=== PATIENT | male | born 1950 | race Hispanic/Latino ===

== ENCOUNTER → 2019-05-21 | Day surgery (SDC) | payer BC ==
[2019-05-16 14:18] LABS: BASOPHILS # (AUTO) 0.1 (0.0-0.1); BASOPHILS % 0.8 % (0.0-1.0); EOSINOPHILS # (AUTO) 0.1 (0.0-0.4); EOSINOPHILS % 1.3 % (0.0-6.0); HEMATOCRIT 43.7 % (38.2-49.6); HEMOGLOBIN 15.2 g/dL (14.0-18.0); LYMPHOCYTES # (AUTO) 2.5 (1.0-3.2); LYMPHOCYTES % 29.5 % (18.0-39.1); MEAN CORPUSCULAR HEMOGLOBIN 31.8 pg (28-32); MEAN CORPUSCULAR HGB CONC 34.8 g/dL (31-35); MEAN CORPUSCULAR VOLUME 91.4 fL (81-99); MONOCYTES # (AUTO) 0.8 (0.2-0.8); MONOCYTES % 9.5 % (4.4-11.3); NEUTROPHILS # (AUTO) 4.9 (2.1-6.9); NEUTROPHILS % 58.7 % (38.7-80.0); PLATELET COUNT 248 x10e3/uL (140-360); RED BLOOD COUNT 4.78 x10e6/uL (4.3-5.7); RED CELL DISTRIBUTION WIDTH 12.1 % (11.7-14.4)
[~2019-05-21] MED LIST: ASPIRIN81 MG PO; HYOSCYAMINE 0.125 MG TAB ONE; PROPOFOL IV EMULSION 10 MG/ML 20 ML VIAL ONE
--- OUTSIDE RECORDS SUMMARY | 2019-05-21 09:58 | XMS REPORT ---
[facility] Address Unknown Phone Unavailable Care Team Providers Care [employer] Administrator Name Role Phone Unavailable Unavailable Problems This patient has no known problems. Allergies, Adverse Reactions, Alerts This patient has no known allergies or adverse reactions. Medications This patient has no known medications. Encounters Start Date/Time End Date/Time Encounter Type Admission Type Attending [facility] Care Facility Care Department Encounter ID 2019-02-09 07:29:04 2019-02-09 07:29:04 Emergency [facility] [id number] 2017-03-23 10:25:06 2017-03-23 10:25:06 Emergency [facility] [id number] 2017-03-23 09:22:41 2017-03-23 09:22:41 Emergency [facility] [id number]
--- OUTSIDE RECORDS SUMMARY | 2019-05-21 09:58 | XMS REPORT ---
Author Author Admin, [place] Organization [facility] Address Unknown Phone Unavailable Allergies, Adverse Reactions, Alerts Allergy Name Reaction Description Start Date Severity Status Provider No Known Allergies Virgen Olivo MA Conditions or Problems Problem Name Problem Code Onset Date Status Entry Date Provider Comment Standard Description Annotate BMI 31.0-31.9 Active Wojciech Nicholas MD Body Mass Index 31.0-31.9, adult Allergic conjunctivitis 372.14 Active Wojciech Nicholas MD Other chronic allergic conjunctivitis Occipital pain 784.0 Active Wojciech Nicholas MD Headache Red eye, right 379.93 Active Wojciech Nicholas MD Redness or discharge of eye Back pain, left 724.5 Active David Vasquez MD Backache, unspecified Annual exam V72.31 Active Suasnna Meza MD Routine gynecological examination Colon cancer screening V76.51 Active Susanna Meza MD Screening for malignant neoplasms of colon Hx of neck pain 723.1 Active Susanna Meza MD Cervicalgia Lipid disorder screening V77.91 Active Susanna Meza MD Screening for lipoid disorders Obesity Active Susanna Meza MD Obesity, unspecified Screening for diabetes mellitus V77.1 Active Susanna Meza MD Screening for diabetes mellitus Std screening V74.5 Active Susanna Meza MD Screening examination for venereal disease Urinary hesitancy 788.64 Active Susanna Meza MD Urinary hesitancy Medication List Medication Instructions Start Date Stop Date Generic Name NDC Status Provider Patient Instruction NAPHCON-A 0.025-0.3 % OPHTHALMIC SOLUTION Apply 2 drops in the right eye twice a day NAPHAZOLINE-PHENIRAMINE 07486891052 Active Beatrice Hernandez MD Active TYLENOL 325 MG ORAL TABLET 1 tablet by mouth every 6 hours as needed ACETAMINOPHEN 18439459243 Active Beatrice Hernandez MD Active TYLENOL 8 HOUR ARTHRITIS PAIN 650 MG ORAL TABLET EXTENDED RELEASE ACETAMINOPHEN 11947263584 Active David Vasquez MD Active Vital Signs Date Name Value Unit Range Description blood pressure, diastolic 67 mm[Hg] BP montesinos blood pressure, systolic 125 mm[Hg] BP sys height E&M 66.50 [in_us] Bdy height pulse rate E&M 56 /min Heart rate respiratory rate E&M 20 /min Resp rate temperature E&M 98.0 [degF] Body temperature weight E&M 196.60 [lb_av] Weight Measured blood pressure, diastolic 85 mm[Hg] BP montesinos blood pressure, systolic 127 mm[Hg] BP sys height E&M 66.50 [in_us] Bdy height pulse rate E&M 60 /min Heart rate respiratory rate E&M 20 /min Resp rate temperature E&M 98.0 [degF] Body temperature weight E&M 202.20 [lb_av] Weight Measured blood pressure, diastolic 82 mm[Hg] BP montesinos blood pressure, systolic 128 mm[Hg] BP sys height E&M 66.5 [in_us] Bdy height pulse rate E&M 63 /min Heart rate respiratory rate E&M 18 /min Resp rate temperature E&M 98.1 [degF] Body temperature weight E&M 197 [lb_av] Weight Measured Diagnostic Results Date Name Value Unit Range Description Lab Report: CBC With Differential/Platelet, Comp. Metabolic Panel (14), ... - Urinalysis pH, urine, semiquantitative 7.5 5.0-7.5 epithelial cells, urine None seen /[LPF] 0 - 10 Lab Report: CBC With Differential/Platelet, Comp. Metabolic Panel (14), ... - Hematology lymphocyte count, blood, automated 2.3 X10E3/UL 10*3/mm3 0.7-3.1 Lab Report: CBC With Differential/Platelet, Comp. Metabolic Panel (14), ... - Urinalysis bilirubin, urine Negative Negative Lab Report: CBC With Differential/Platelet, Comp. Metabolic Panel (14), ... - Chemistry urea nitrogen, blood 21 mg/dL 8-27 creatinine, serum 1.09 mg/dL 0.76-1.27 chloride, serum 103 mmol/L 96-106 Lab Report: CBC With Differential/Platelet, Comp. Metabolic Panel (14), ... - Hematology mean corpuscular volume, RBC 91 fL 79-97 Lab Report: CBC With Differential/Platelet, Comp. Metabolic Panel (14), ... - Chemistry triglyceride, serum, fasting 315 mg/dL 0-149 Lab Report: CBC With Differential/Platelet, Comp. Metabolic Panel (14), ... - Hematology erythrocyte (RBC) count 4.44 X10E6/UL 10*6/mm3 4.14-5.80 Lab Report: CBC With Differential/Platelet, Comp. Metabolic Panel (14), ... - Chemistry Estimated Glomerular Filtration Rate (calc) 70 mL/min/1.73m2 >59 Lab Report: CBC With Differential/Platelet, Comp. Metabolic Panel (14), ... - Urinalysis appearance, urine Clear Clear Lab Report: CBC With Differential/Platelet, Comp. Metabolic Panel (14), ... - Hematology platelet count 222 X10E3/UL 10*3/mm3 143-099 7191/08/15 red blood cell distribution width 14.3 % 12.3-15.4 Lab Report: CBC With Differential/Platelet, Comp. Metabolic Panel (14), ... - Chemistry protein, total, serum 6.8 g/dL 6.0-8.5 HDL cholesterol, serum 31 mg/dL >39 Lab Report: CBC With Differential/Platelet, Comp. Metabolic Panel (14), ... - Urinalysis mucus on urinalysis Present Not Estab. Lab Report: CBC With Differential/Platelet, Comp. Metabolic Panel (14), ... - Chemistry specific gravity, body fluid 1.026 1.005-1.030 Lab Report: CBC With Differential/Platelet, Comp. Metabolic Panel (14), ... - Urinalysis glucose, urine, semiquantitative Negative Negative Lab Report: CBC With Differential/Platelet, Comp. Metabolic Panel (14), ... - Chemistry albumin/globulin ratio, serum 1.5 1.2-2.2 Lab Report: CBC With Differential/Platelet, Comp. Metabolic Panel (14), ... - Hematology eosinophils as percent of blood leukocytes 2 % Lab Report: CBC With Differential/Platelet, Comp. Metabolic Panel (14), ... - Chemistry Absolute Neutrophils 5.4 X10E3/UL 10*3/uL 1.4-7.0 Lab Report: CBC With Differential/Platelet, Comp. Metabolic Panel (14), ... - Hematology basophil count, absolute 0.1 x10E3/uL 0.0-0.2 Lab Report: CBC With Differential/Platelet, Comp. Metabolic Panel (14), ... - Chemistry alanine aminotransferase (SGPT), serum 20 U/L 0-44 LDL cholesterol, serum 101 mg/dL 0-99 Lab Report: CBC With Differential/Platelet, Comp. Metabolic Panel (14), ... - Hematology monocytes as percent of blood leukocytes 10 % Lab Report: CBC With Differential/Platelet, Comp. Metabolic Panel (14), ... - Chemistry cholesterol, serum 195 mg/dL 100-199 Lab Report: CBC With Differential/Platelet, Comp. Metabolic Panel (14), ... - Basic Occult Blood, urine Negative Negative Lab Report: CBC With Differential/Platelet, Comp. Metabolic Panel (14), ... - Hematology mean corpuscular hemoglobin concentration, RBC 34.2 G/DL % 31.5-35.7 Lab Report: CBC With Differential/Platelet, Comp. Metabolic Panel (14), ... - Urinalysis leukocyte esterase, urine, by dipstick Negative Negative Lab Report: CBC With Differential/Platelet, Comp. Metabolic Panel (14), ... - Hematology hemoglobin, blood 13.9 g/dL 12.6-17.7 Lab Report: CBC With Differential/Platelet, Comp. Metabolic Panel (14), ... - Urinalysis urinalysis, microscopic examination MICRON Lab Report: CBC With Differential/Platelet, Comp. Metabolic Panel (14), ... - Hematology leukocyte count, blood 8.8 X10E3/UL 10*3/mm3 3.4-10.8 Lab Report: CBC With Differential/Platelet, Comp. Metabolic Panel (14), ... - Urinalysis protein, urine, semiquantitative (dipstick) Trace Negative/Trace Lab Report: CBC With Differential/Platelet, Comp. Metabolic Panel (14), ... - Hematology hematocrit, blood 40.6 % 37.5-51.0 Lab Report: CBC With Differential/Platelet, Comp. Metabolic Panel (14), ... - Chemistry globulin, serum 2.7 1.5-4.5 Lab Report: CBC With Differential/Platelet, Comp. Metabolic Panel (14), ... - Urinalysis bacteria, urine microscopy None seen None seen/Few Lab Report: CBC With Differential/Platelet, Comp. Metabolic Panel (14), ... - Chemistry albumin, serum 4.1 g/dL 3.6-4.8 very low density lipoproteins 63 mg/dL 5-40 Lab Report: CBC With Differential/Platelet, Comp. Metabolic Panel (14), ... - Urinalysis urobilinogen, urine, semiquantitative (dipstick) 0.2 0.2-1.0 Lab Report: CBC With Differential/Platelet, Comp. Metabolic Panel (14), ... - Chemistry calcium, serum 8.7 mg/dL 8.6-10.2 Lab Report: CBC With Differential/Platelet, Comp. Metabolic Panel (14), ... - Hematology basophils as percent of blood leukocytes 1 % monocyte count, blood, automated 0.9 X10E3/UL 10*3/uL 0.1-0.9 Lab Report: CBC With Differential/Platelet, Comp. Metabolic Panel (14), ... - Chemistry immature granulocytes, percentage of total cells, blood 0 % urea nitrogen/creatinine ratio, serum 19 10-24 Lab Report: CBC With Differential/Platelet, Comp. Metabolic Panel (14), ... - Genetics/fertility eGFR if 81 mL/min/1.73m2 >59 Lab Report: CBC With Differential/Platelet, Comp. Metabolic Panel (14), ... - Urinalysis WBC urine on microscopy 0-5 /hpf {Cells}/[HPF] 0 - 5 Lab Report: CBC With Differential/Platelet, Comp. Metabolic Panel (14), ... - Hematology lymphocytes as percent of blood leukocytes 26 % Lab Report: CBC With Differential/Platelet, Comp. Metabolic Panel (14), ... - Chemistry carbon dioxide, venous blood 24 mmol/L 18-29 RBC, Urine 0-2 /hpf /[HPF] 0 - 2 Lab Report: CBC With Differential/Platelet, Comp. Metabolic Panel (14), ... - Serology rapid plasma reagin antibody, serum Non Reactive Non Reactive Lab Report: CBC With Differential/Platelet, Comp. Metabolic Panel (14), ... - Lab chlamydia DNA probe Negative Negative Lab Report: CBC With Differential/Platelet, Comp. Metabolic Panel (14), ... - Microbiology Neisseria gonorrhoeae DNA probe Negative Negative Lab Report: CBC With Differential/Platelet, Comp. Metabolic Panel (14), ... - Chemistry sodium, serum 141 mmol/L 134-144 Office Visit: Annual Male Dr. Holland Rm. 7 - Chemistry hemoglobin A1C, blood, as % of total hemoglobin 5.7 % Lab Report: CBC With Differential/Platelet, Comp. Metabolic Panel (14), ... - Chemistry alkaline phosphatase, serum 62 U/L 39-117 Lab Report: CBC With Differential/Platelet, Comp. Metabolic Panel (14), ... - Urinalysis ketones, urine, by test strip Negative Negative Lab Report: CBC With Differential/Platelet, Comp. Metabolic Panel (14), ... - Hematology Eosinophil Absolute Count 0.1 X10E3/UL 10*3/uL 0.0-0.4 mean corpuscular hemoglobin, RBC 31.3 pg 26.6-33.0 Lab Report: CBC With Differential/Platelet, Comp. Metabolic Panel (14), ... - Chemistry bilirubin, serum, total 0.3 mg/dL 0.0-1.2 Lab Report: CBC With Differential/Platelet, Comp. Metabolic Panel (14), ... - Hematology neutrophils as percent of blood leukocytes 61 % Lab Report: CBC With Differential/Platelet, Comp. Metabolic Panel (14), ... - Microbiology microscopic exam See below: Lab Report: CBC With Differential/Platelet, Comp. Metabolic Panel (14), ... - Chemistry nitrate, urine Negative Negative blood glucose, random 97 mg/dL 65-99 potassium, serum 4.1 mmol/L 3.5-5.2 aspartate aminotransferase (SGOT), serum 29 U/L 0-40 Lab Report: CBC With Differential/Platelet, Comp. Metabolic Panel (14), ... 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
[2019-05-21 16:00] VITALS: BP 117/70
--- NOTE | 2019-05-21 19:18 | Operative Report ---
DATE OF PROCEDURE: 05/21/2019 SURGEON: Yon Merchant MD PROCEDURE: Colonoscopy with polypectomy. INDICATION FOR COLONOSCOPY: Colorectal cancer screening. MEDICATIONS: The patient was done under MAC, please see anesthesiologist's note. PROCEDURE IN DETAIL: With the patient in the left lateral decubitus position, a flexible fiberoptic Olympus colonoscope was inserted into the rectum with ease and advanced all the way to the cecum. The scope was then withdrawn slowly, mucosa overlying the cecum, ascending colon, transverse colon, descending colon, and sigmoid colon grossly appeared to be within normal limits. Approximately one 5 mm polyp was noted in the rectum and that was removed per snare electrocautery. The scope was then retroflexed into the distal rectum and small internal hemorrhoids were noted, none of which was actively bleeding. The scope was then straightened out, it was subsequently withdrawn, and the patient tolerated the procedure well. IMPRESSION: 1. Rectal polyp, snared. 2. Internal hemorrhoids, none actively bleeding. PLAN: Follow up histology. Initiate high-fiber, low-fat diet. Initiate high-fiber supplement. The patient might benefit from a followup colonoscopy in 5 years. Yon Merchant MD [facility] /[id number]
== END | disposition home or self-care (01) ==
LOC: OR 09:50
PROVIDERS: ATTEND Internal Medicine Gastroenterology
DX: Z12.11 Encounter for screening for malignant neoplasm of colon (principal); K62.1 Rectal polyp; K64.8 Other hemorrhoids; K21.0 Gastro-esophageal reflux disease with esophagitis; I10 Essential (primary) hypertension; Z01.810 Encounter for preprocedural cardiovascular examination; Z01.812 Encounter for preprocedural laboratory examination; Z79.82 Long term (current) use of aspirin; Z68.30 Body mass index [BMI] 30.0-30.9, adult
CPT/HCPCS: 36415; 45385; 85025; 93005; J2704; 45378

== ENCOUNTER → 2019-06-17 | Outpatient (CLI) | payer BC ==
[~2019-06-17] MED LIST changes: -HYOSCYAMINE 0.125 MG TAB ONE; +IOPAMIDOL 370 MG/ML 200 ML INFUS..BTL INJ ONE; -PROPOFOL IV EMULSION 10 MG/ML 20 ML VIAL ONE; +SODIUM CHLORIDE 0.9% 50ML 50 ML ONE
[2019-06-17 17:39] LABS: BLOOD UREA NITROGEN 23 mg/dL (7-26); BUN/CREATININE RATIO 25 (6-25); CREATININE, SERUM 0.91 mg/dL (0.72-1.25); EST GLOMERULAR FILTRATION RATE > 60 ML/MIN (60-)
--- NOTE | 2019-06-18 09:34 | Diagnostic Imaging Report ---
EXAM: CT Neck and Chest WITH intravenous contrast 06/17/2019 4:46 PM INDICATION: Neck pain, rib pain COMPARISON: None TECHNIQUE: Chest was scanned utilizing a multidetector helical scanner from the skull base through the level of the adrenal glands after administration of IV contrast. Coronal and sagittal reformations were obtained. Routine protocol was performed. IV CONTRAST: 100mL Isovue 370 RADIATION DOSE: Total DLP: 692 mGy*cm. Dose modulation, iterative reconstruction, and/or weight based adjustment of the mA/kV was utilized to reduce the radiation dose to as low as reasonably achievable. COMPLICATIONS: None FINDINGS: NECK: No acute osseous injury of the neck or skull base. Three-vessel aortic arch. The internal carotid arteries and vertebral arteries are widely patent. This study is not tailored for evaluation of brain parenchyma however the visualized intracranial structures appear unremarkable. The orbits appear unremarkable. The paranasal sinuses and mastoid air cells are clear. The extracranial soft tissues appear unremarkable. No cervical lymphadenopathy. The parotid and submandibular glands appear unremarkable. LINES/ TUBES: None. LUNGS AND AIRWAYS: The central airways are patent. No focal consolidation or pulmonary edema. No suspicious pulmonary nodules. PLEURA: The pleural spaces are clear. HEART AND MEDIASTINUM: The thyroid gland is normal. No supraclavicular, axillary, mediastinal, or hilar lymphadenopathy. The heart is not enlarged. No pericardial effusion. Mild scattered atherosclerotic calcifications of the coronary arteries and aortic arch. No central pulmonary embolism. UPPER ABDOMEN: Mild left intrahepatic biliary ductal dilation. 1.6 cm nonspecific cystic structure at the anterior caudate lobe of the liver. 6.5 cm left upper pole exophytic renal cyst. BONES: No acute osseous injury. No suspicious lytic or blastic lesions. SOFT TISSUES: Unremarkable. IMPRESSION: No acute findings in the neck or thorax. Mild left intrahepatic biliary ductal dilation. 6.5 cm left upper pole exophytic renal cyst. Signed by: Patrice Sanchez MD on 06/18/2019 9:31 AM
== END ==
LOC: CT 16:24
PROVIDERS: ATTEND Internal Medicine Gastroenterology
DX: M54.2 Cervicalgia (principal); R07.89 Other chest pain; K76.9 Liver disease, unspecified; N28.1 Cyst of kidney, acquired
CPT/HCPCS: 36415; 70491; 71260; 82565; 84520; Q9967